=== PATIENT | male | born 1990 | race American Indian/Alaskan Native ===

== ENCOUNTER 2020-06-09 11:00 | Emergency (ER) | payer OTHER ==
[2020-06-09 11:12] VITALS: BP 150/96
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
== END 2020-06-09 11:35 | disposition home or self-care (01) ==
LOC: ED 11:00
DX: M54.42 Lumbago with sciatica, left side (principal); Z79.899 Other long term (current) drug therapy
CPT/HCPCS: 99282